=== PATIENT | female | born 1945 | race Caucasian/White ===

== ENCOUNTER 2020-01-15 08:25 | Outpatient (CLI) | payer MEDICARE, SELFPAY ==
--- NOTE | ~2020-01-15 | MM_ITS ---
EXAMINATION: MM screening [facility] BI w jose HISTORY: Screening mammogram TECHNIQUE: Craniocaudal and mediolateral oblique 3-D tomosynthesis images were obtained and synthetic 2-D images were generated. CAD analysis was submitted and interpreted. COMPARISON: 01/13/2019, 12/15/2017, 12/03/2016 BREAST PARENCHYMAL COMPOSITION: There are scattered areas of fibroglandular density. FINDINGS: A stable asymmetry is present in the posterior third of the outer right breast on the crani ocaudal view. There is no evidence of suspicious mass, calcification, or architectural distortion to suggest malignancy in either breast. There has been no suspicious interval change. IMPRESSION: 1. No mammographic evidence of malignancy. 2. Recommend routine screening mammography in one year. BI-RADS Category 2: Benign finding(s). Reviewed, dictated and finalized at location A.
== END 2020-01-15 08:26 | disposition home or self-care (01) ==
LOC: ANHIMG 08:34
PROVIDERS: PCP Family Medicine; Visit Provider Family Medicine
DX: Z12.31 Encounter for screening mammogram for malignant neoplasm of breast (principal)
CPT/HCPCS: 77063; 77067

== ENCOUNTER 2020-05-03 09:35 | Emergency (ER) | payer MEDICARE, SELFPAY ==
--- NOTE | ~2020-05-03 | CT_ITS ---
EXAMINATION: CT facial & cervical spine wo DATE: 05/03/2020 10:53 INDICATION: Head injury. TECHNIQUE: Computed tomography (CT) of the maxillofacial region and cervical spine was performed with out intravenous contrast. Automated exposure control and iterative reconstruction technique were empl oyed. The dose-length product was 165.89 mGy-cm. COMPARISON: None FINDINGS: MAXILLOFACIAL CT: There are likely changes of ocular lens replacement surgeries. There is mild mucosal thickening in th e maxillary sinuses. There is rightward deviation the nasal septum. No fracture. CERVICAL SPINE CT: There is 2 mm anterolisthesis of C3 on C4. Vertebral body heights are normal. There is mildly decreas ed disc height at C4-C5 and severely decreased disc height at C5-C6 and C6-C7. The following disc lev els are specifically discussed: C2-C3: There is no uncovertebral joint osteoarthritis. There is moderate right and mild left facet colby int osteoarthritis. There is no neural foraminal stenosis. There is no central canal stenosis. C3-C4: There is moderate bilateral uncovertebral joint osteoarthritis. There is severe bilateral face t joint osteoarthritis. There is moderate bilateral neural foraminal stenosis. There is mild central canal stenosis. C4-C5: There is severe bilateral uncovertebral joint osteoarthritis. There is severe bilateral facet joint osteoarthritis. There is mild bilateral neural foraminal stenosis. There is mild central canal stenosis. C5-C6: There is severe bilateral uncovertebral joint osteoarthritis. There is severe right and modera te left facet joint osteoarthritis. There is mild bilateral neural foraminal stenosis. There is mild central canal stenosis. C6-C7: There is severe bilateral uncovertebral joint osteoarthritis. There is mild bilateral facet colby int osteoarthritis. There is mild bilateral neural foraminal stenosis. There is mild central canal st enosis. C7-T1: There is no uncovertebral joint osteoarthritis. There is mild bilateral facet joint osteoarthr itis. There is no neural foraminal stenosis. There is no central canal stenosis. IMPRESSION: 1. No fracture. 2. Severe cervical spondylosis. Reviewed, dictated and finalized at location B.
--- NOTE | ~2020-05-03 | XR_ITS ---
EXAMINATION: XR knee RT min 4V DATE: 05/03/2020 10:40 INDICATION: Right knee injury. TECHNIQUE: 4 views of right knee were obtained. COMPARISON: Right knee radiographs 04/17/2016 FINDINGS: Bone alignment is normal. No fracture. There is mild osteoarthritis of medial and lateral c ompartments and severe osteoarthritis of patellofemoral compartment. There is chondrocalcinosis of th e menisci. There is a 13 mm loose body in the knee joint posteriorly. No knee joint effusion. IMPRESSION: 1. Severe right knee osteoarthrosis. 2. Right knee joint loose body. Reviewed, dictated and finalized at location B.
--- NOTE | ~2020-05-03 | CT_ITS ---
EXAMINATION: CT brain wo con DATE: 05/03/2020 10:53 INDICATION: Head injury. TECHNIQUE: Computed tomography (CT) of the head was performed without intravenous contrast. The mA wa s adjusted according to patient size. Iterative reconstruction technique was employed. The dose-lengt h product was 605.33 mGy-cm. COMPARISON: Head CT 03/27/2019 FINDINGS: There are scattered areas of low attenuation in the cerebral white matter. There is no intr acranial hemorrhage, acute infarction, or abnormal intracranial mass lesion. The ventricles are trish l in size. There are likely changes of ocular lens replacement surgeries. The paranasal sinuses are c lear. The mastoid air cells are normal. IMPRESSION: 1. Stable moderate nonspecific cerebral white matter disease, which likely represents chronic small v essel ischemic disease. Reviewed, dictated and finalized at location B. IMPRESSION: 1. Stable moderate nonspecific cerebral white matter disease, which likely repr esents chronic small vessel ischemic disease.
--- NOTE | ~2020-05-03 | XR_ITS ---
EXAMINATION: XR chest 1V DATE: 05/03/2020 10:40 INDICATION: Fall. TECHNIQUE: A single frontal view of the chest was obtained. COMPARISON: Chest 2 views 05/31/2017 FINDINGS: There is mild atelectasis in left lower lung zone. No pleural effusion or pneumothorax. The heart size is normal. There is a suture anchor in right humeral head. IMPRESSION: 1. Mild atelectasis in left lower lung zone. Reviewed, dictated and finalized at location B.
[2020-05-03 09:48] VITALS: BP 156/71; PULSE 87; RESP 20; TEMP 37; O2SAT 100
--- NOTE | 2020-05-03 11:23 | ED.FALL ---
HPI - Fall General Chief Complaint: Fall Stated Complaint: facial injury after fall Time Seen by Provider: 05/03/20 09:40 Source: RN notes reviewed History of Present Illness HPI Narrative: Patient presents emergency department from home for fall. Patient with history of dementia and history is limited. Patient states she was running and tripped and fell striking her face. Patient has swelling and ecchymosis around the nasal bridge as well as wounds over the lip patient also notes some contusion to the bilateral knees. Patient denies any loss of consciousness per family the patient is not on any blood thinners. Patient denies any chest pain shortness of breath abdominal pain nausea vomiting or any other symptoms. Patient and family unsure of last tetanus shot Related Data Allergies Allergy/AdvReac Type Severity Reaction Status Date / Time Sulfa (Sulfonamide Allergy Severe RASH AND Verified 05/03/20 09:56 Antibiotics) SORE JOINTS AND MUSCLES cephalexin Allergy Unknown Nausea Verified 05/03/20 09:56 Penicillins Allergy Unknown allergic Verified 05/03/20 09:56 sulfamethizole Allergy Unknown allergic Verified 05/03/20 09:56 Review of Systems Review of Systems: Narrative: Gen.: Denies fevers or chills Eyes: Denies eye pain or visual change ENT: Denies congestion Respiratory: Denies shortness of breath or cough CV: Denies chest pain or palpitations GI: Denies abdominal pain nausea, emesis or diarrhea Musculoskeletal: See HPI Neuro: Denies numbness, tingling, weakness or focal weakness Skin: See HPI Except as documented, all other systems reviewed and negative PMFSH Past Medical History Medical History (Updated 05/03/20 @ 11:30 by Gurwinder Bustamante DO) Hyperlipidemia, unspecified Social History Social History Smoking status: Never smoker Alcohol intake: never Gender identity (if verbalized by the patient): Female Exam Narrative: Exam Narrative: APPEARANCE: No acute distress, nontoxic, resting in bed EYES: EOMI HEENT: Normocephalic, nares patent swelling and ecchymosis over the nasal bridge, oral mucosa moist, no erythema or exudate posterior pharynx, small puncture wound over inner anterior lip with no active bleeding, the superior anterior lip has an area of abrasion with no deep laceration no through and through laceration seen RESPIRATORY: No respiratory distress Clear to auscultation bilaterally with no rhonchi wheezing or rales. CARDIOVASCULAR: Regular rate and rhythm without murmurs rubs or gallops. ABDOMINAL: Soft, nontender, nondistended, no rebound or guarding MUSCULOSKELETAl: Moves all extremities. No clubbing, cyanosis or edema. Small area of ecchymosis over left anterior knee no tenderness palpation full range of motion of the knee without pain, right knee with area of swelling and ecchymosis full flexion-extension without pain, no tenderness of the medial or lateral right knee, no tenderness of the bilateral hips or ankles, bile dorsalis pedis pulse 2+ neurovascular intact NEURO: Awake and alert x 2. Following commands, speech normal, no focal deficits SKIN:: Warm, dry. See HEENT PSYCHIATRIC: Normal affect/mood, Course Course Emergency Course: Discussed with patient results of workup and diagnosis. Discussed need for follow-up with primary care, proper use of medication, and reasons to return to the emergency department. Patient understands and agrees to current treatment plan Vital Signs Vital signs: Vital Signs Temperature 98.6 F 05/03/20 09:48 Pulse Rate 87 05/03/20 09:48 Respiratory Rate 05/03/20 09:48 Blood Pressure 156/71 H 05/03/20 09:48 Pulse Oximetry 100 05/03/20 09:48 Temperature 98.6 F 05/03/20 09:48 Pulse Rate 87 05/03/20 09:48 Respiratory Rate 05/03/20 09:48 Blood Pressure 156/71 H 05/03/20 09:48 Pulse Oximetry 100 05/03/20 09:48 MDM - Fall Imaging Data Radiologist's impres
[2020-05-03] MEDS: TETANUS,DIPHTHERIA,AC PERTUSSIS ADULT (0.5 ML) BOOSTRIX IM (11:28)
[2020-05-03 11:40] VITALS: BP 150/70; PULSE 82; RESP 20; O2SAT 99
== END 2020-05-03 11:55 | disposition home or self-care (01) ==
PROVIDERS: Emergency Provider Emergency Medicine; PCP Family Medicine
DX: S00.33XA Contusion of nose, initial encounter (principal); S80.01XA Contusion of right knee, initial encounter; S00.511A Abrasion of lip, initial encounter; F03.90 Unspecified dementia, unspecified severity, without behavioral disturbance, psychotic disturbance, mood disturbance, and anxiety; Z23 Encounter for immunization; E78.5 Hyperlipidemia, unspecified; M17.11 Unilateral primary osteoarthritis, right knee; R91.8 Other nonspecific abnormal finding of lung field; M47.812 Spondylosis without myelopathy or radiculopathy, cervical region; R90.82 White matter disease, unspecified; W01.0XXA Fall on same level from slipping, tripping and stumbling without subsequent striking against object, initial encounter; Y93.02 Activity, running
CPT/HCPCS: 70450; 70486; 71045; 72125; 73564; 90471; 90715; 99284

== ENCOUNTER 2020-07-15 17:07 | Emergency (ER) | payer MEDICARE, SELFPAY ==
[2020-07-15 17:15] VITALS: BP 135/60; PULSE 92; RESP 16; TEMP 37; O2SAT 100
--- NOTE | 2020-07-15 17:38 | ED.EAR ---
HPI - Ear Problem General Chief complaint: Ear Stated complaint: hearing loss Source: patient Mode of arrival: ambulatory Limitations: no limitations History of Present Illness HPI Narrative: Patient is a 75-year-old female with a history of dementia. Patient's reports that she has been complaining about being unable to hear all day. reports patient has been digging at ears intermittently. Reports history of cerumen impactions in the past. Patient does not appear to be in pain at this time, patient is confused and unable to answer questions. 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 EYES: Denies visual changes, redness, or discharge. ENT: Denies rhinorrhea, congestion, sore throat, reports bilateral otalgia CARDIOVASCULAR: Denies chest pain, palpitations, or edema. RESPIRATORY: Denies cough or dyspnea. GASTROINTESTINAL: Denies abdominal pain, nausea, vomiting, or diarrhea. GENITOURINARY: Denies dysuria or hematuria. SKIN: Denies rash or itching. MUSCULOSKELETAL: Denies back pain, joint pain, or myalgia. NEUROLOGIC: Denies headache, numbness, dizziness, or weakness. PSYCHIATRIC: Denies anxiety or depression. PMFSH Past Medical History Medical History Hyperlipidemia, unspecified Family History Family History Mother Family history of cardiovascular disease Diabetes mellitus Father Carcinoma of colon Social History Social History Smoking status: Never smoker Alcohol intake: never Gender identity (if verbalized by the patient): Female Exam Narrative: Exam Narrative: GENERAL: Well-appearing, well-nourished, and in no acute distress. HEAD: Normocephalic, atraumatic. EYES: No redness or drainage. ENT: Mucous membranes pink and moist. Cerumen impaction in bilateral ears. CHEST: No respiratory distress. EXTREMITIES: Normal range of motion. No edema. SKIN: Warm, dry, no rash. NEURO: No focal deficits. Alert and oriented x3. Gait steady. PSYCH: Normal affect. No signs of depression or anxiety. Course Vital Signs Vital signs: Vital Signs Temperature 37.0 C 07/15/20 17:15 Pulse Rate 92 07/15/20 17:15 Respiratory Rate 16 07/15/20 17:15 Blood Pressure 135/60 07/15/20 17:15 Pulse Oximetry 100 07/15/20 17:15 Temperature 37.0 C 07/15/20 17:15 Pulse Rate 92 07/15/20 17:15 Respiratory Rate 16 07/15/20 17:15 Blood Pressure 135/60 07/15/20 17:15 Pulse Oximetry 100 07/15/20 17:15 Reviewed. Patient has been instructed to follow-up with her PCP regarding her blood pressure. Procedures Ear Wax Removal Both Ears: Ear Wax Removal Date: 07/15/20 Ear Wax Removal Time: 17:46 Cerumenolytic Used: other Results: Re-examined: cerumen removed completely TM Examination: TM(s) intact, normal appearance Ear Canal Exam: atraumatic Patient Tolerated Procedure: well Complications: no problems Technique: ear canal irrigated and ear canal curetted Medical Decision Making MDM Narrative Medical decision making narrative: Patient had bilateral cerumen impaction, ears flushed and curetted to remove large amount of earwax bilaterally. Patient has a history of dementia and unable to verify if hearing is better at this time. Patient is stable for discharge to home with
== END 2020-07-15 17:51 | disposition home or self-care (01) ==
PROVIDERS: Emergency Provider Nurse Practitioner; PCP Family Medicine
DX: H61.23 Impacted cerumen, bilateral (principal); E78.5 Hyperlipidemia, unspecified
CPT/HCPCS: 69210; 99212; G0463

== ENCOUNTER 2021-10-07 19:36 | Emergency (ER) | payer MEDICARE, SELFPAY ==
[2021-10-07] VITALS (23 sets, daily range): BP systolic 94–129; BP diastolic 59–76; PULSE 60–79; RESP 9–20; TEMP 36.7; O2SAT 96–100
--- NOTE | ~2021-10-07 | CT_ITS ---
EXAMINATION: CT facial & cervical spine wo EXAM DATE: 10/07/2021 22:40 INDICATION: Fall, head injury. Facial injury. TECHNIQUE: Spiral CT of the facial bones was acquired in the axial plane. Coronal reformatted images were also reviewed. Spiral CT of the cervical spine was performed without contrast. Axial images we re reviewed. Coronal and sagittal reformatted images were also reviewed. The dose-length product (DL P) for this examination was 231.04 mGy-cm. The exposure was tailored according to patient size, and iterative reconstruction (ASIR) was used as additional dose reduction technique. There is no prior s tudy for comparison. FINDINGS: FACIAL CT: There are no displaced acute nasal bone fractures. The mandible, sinuses and orbits are i ntact. The orbits, globes and extraocular muscles are unremarkable. Bilateral cataract surgery. The visualized sinuses and mastoid air cells are well aerated. There is right frontal scalp contusion and laceration. There is swelling over the right maxilla, cheek. CERVICAL CT: Patient's head is turned to the left. There is no evidence of acute cervical fracture. The odontoid process is intact. Pre-dens space is normal. Prevertebral soft tissue is normal. Ther e are no soft tissue abnormalities identified. There is no disc space widening or traumatic vertebra l body subluxation suspected. Moderate to severe cervical spondylosis. A detailed level by level ev aluation of spondylosis can be added as addendum if requested. IMPRESSION: 1. No acute facial or cervical fracture. 2. Right frontal scalp contusion, laceration. Right cheek swelling. 3. Cervical spondylosis. Reviewed, dictated and finalized at location G. K OFF WORKER
--- NOTE | ~2021-10-07 | CT_ITS ---
EXAMINATION: CT brain wo con EXAM DATE: 10/07/2021 22:40 INDICATION: Fall, head injury, right eyebrow laceration. Left side hematoma. Right cheek bruising. TECHNIQUE: Spiral CT of the head was performed without contrast. Axial, coronal and sagittal images were reviewed. The dose-length product (DLP) for this examination was 605.33 mGy-cm. The exposure w as tailored according to patient size, and iterative reconstruction (ASIR) was used as additional dos e reduction technique. Comparison is made to prior examination from 05/03/2020. FINDINGS: There is no acute intraparenchymal hemorrhage. No evidence of intraparenchymal brain mass lesion. No evidence of acute infarction. Please note that initial head CT has limited sensitivity f or small or acute infarctions. There is moderate periventricular and subcortical hypodensity, nonspec ific but probably related to small vessel ischemic disease. There is moderate prominence of the sul ci and ventricles related to cerebral atrophy. There is intracranial carotid arteriosclerosis. The re are no extra-axial collections. There is no mass effect or midline shift. Patient has had bilate ral ocular lens surgery. Right frontal scalp contusion, laceration. The visualized sinuses and masto id air cells are well aerated. IMPRESSION: 1. No acute intracranial findings. 2. Chronic age related findings. 3. Right frontal scalp contusion, laceration. Reviewed, dictated and finalized at location G. MANAGER
--- NOTE | 2021-10-07 23:01 | ED.FALL ---
HPI - Fall General Chief Complaint: Fall Stated Complaint: fall with head injury Time Seen by Provider: 10/07/21 20:05 Source: family and EMS Mode of arrival: EMS Limitations: dementia History of Present Illness HPI Narrative: 76-year-old female Due to severe dementia patient resides at a SNF where she is a somewhat frequent nils This afternoon she was found on the floor next to her bed Unclear how she got there but at the time she was reported to have told staff that she rolled out of the bed onto the floor, however now she does not remember anything about the incident She has a small wound to the forehead some bruising to the face and some superficial skin tears mostly on her right arm Related Data Home Medications Medication Instructions Recorded Confirmed buspirone 5 mg tablet 5 mg PO BID 09/03/21 09/03/21 donepezil 5 mg tablet 5 mg PO QHS 09/03/21 09/03/21 sertraline 100 mg tablet 200 mg PO DAILY tablet 09/03/21 09/03/21 Allergies Allergy/AdvReac Type Severity Reaction Status Date / Time Sulfa (Sulfonamide Allergy Severe RASH AND Verified 09/03/21 12:24 Antibiotics) SORE JOINTS AND MUSCLES cephalexin Allergy Unknown Nausea Verified 09/03/21 12:24 Penicillins Allergy Unknown allergic Verified 09/03/21 12:24 sulfamethizole Allergy Unknown allergic Verified 09/03/21 12:24 Review of Systems Review of Systems: ROS unobtainable: Yes unobtainable due to mental status Constitutional: Constitutional: Reports weakness Cardiovascular: Cardiovascular: Denies chest pain Gastrointestinal: Gastrointestinal: Denies diarrhea and Denies vomiting [facility] Past Medical History Medical History Hyperlipidemia, unspecified Family History Family History Mother Family history of cardiovascular disease Diabetes mellitus Father Carcinoma of colon Social History Social History Alcohol intake: never Gender identity (if verbalized by the patient): Female Exam Const: General: cooperative, no acute distress, alert and confusion Other: Frail, elderly HENMT: Head: normocephalic, atraumatic, contusion, hematoma and laceration Ears: external ears normal General nose exam: no epistaxis Other: There is an old bruise on the left cheek and there is a fresh contusion on the right cheek there is a small roughly 3 mm laceration to the right forehead Eyes: Conjunctivae: conjunctivae normal EOM: EOMs intact bilaterally Neck: Neck: supple and no JVD Other: She was placed in a cervical collar but it is fitted underneath her nose and not doing anything so I just took it off, her neck is nontender Chest: Other: No chest wall tenderness with palpation Resp: Effort & Inspection: normal respiratory effort and not labored Auscultation: other (BS =) Cardio: Rate: regular rate Rhythm: regular rhythm Heart sounds: no murmurs GI: GI Palp: Yes Soft to palpation and No Tenderness to palpation present (GI) Back/Spine/Pelvis: Other: No back tenderness Skin: General skin exam: no rashes or lesions noted Other: She has a superficial skin tear on the right hand Neuro: General: moves all extremities Speech: normal speech Extrem: General: no pedal edema Psych: Affect: normal affect Course Course Emergency Course: Scans negative wounds clean and dressed, Steri-Strip applied to forehead by nursing Vital Signs Vital signs: Vital Signs Temperature 36.7 C 10/07/21 19:39 Pulse Rate 73 10/07/21 19:39 Respiratory Rate 17 10/07/21 19:39 Blood Pressure 121/61 10/07/21 19:39 Pulse Oximetry 100 10/07/21 19:39 Temperature 36.7 C 10/07/21 19:39 Pulse Rate 73 10/07/21 19:39 Respiratory Rate 17 10/07/21 19:39 Blood Pressure 121/61 10/07/21 19:39 Pulse Oximetry 100 10/07/21 19:39 MDM - Fall Medical Records Attestation: I r
[2021-10-08] VITALS: PULSE 62; RESP 14
[2021-10-08 00:04] VITALS: BP 109/86; PULSE 64; RESP 15
--- NOTE | 2021-10-08 00:14 | PC.NURSE ---
wounds dressed by Heaven MONTANO as ordered by EDP
== END 2021-10-08 00:29 ==
PROVIDERS: Emergency Provider Emergency Medicine; PCP Family Medicine
DX: S01.81XA Laceration without foreign body of other part of head, initial encounter (principal); S00.83XA Contusion of other part of head, initial encounter; E78.5 Hyperlipidemia, unspecified; F03.90 Unspecified dementia, unspecified severity, without behavioral disturbance, psychotic disturbance, mood disturbance, and anxiety; W06.XXXA Fall from bed, initial encounter
CPT/HCPCS: 70450; 70486; 72125; 99284

== ENCOUNTER 2021-11-01 09:19 | Emergency (ER) | payer MEDICARE, SELFPAY ==
[2021-11-01 09:21] VITALS: BP 122/87; PULSE 79; RESP 20; TEMP 36.8
--- NOTE | 2021-11-01 09:33 | ED.ABDPAIN ---
HPI - Abdominal Pain General Chief Complaint: Abdominal Pain Stated Complaint: abd pain Time Seen by Provider: 11/01/21 09:21 Source: patient and EMS Mode of arrival: EMS Limitations: dementia History of Present Illness HPI narrative: 76-year-old female presents to the ER via EMS with lower abdominal pain that started approximately an hour before arriving. Caregiver denies any diarrhea, nausea, vomiting, or fevers. Patient has a history of dementia but started complaining of lower abdominal pain. No other complaints MD elicited complaint: abdominal pain Onset (ago): hour(s) (One) Related Data Allergies Allergy/AdvReac Type Severity Reaction Status Date / Time Sulfa (Sulfonamide Allergy Severe RASH AND Verified 10/20/21 11:08 Antibiotics) SORE JOINTS AND MUSCLES cephalexin Allergy Unknown Nausea Verified 10/20/21 11:08 Penicillins Allergy Unknown allergic Verified 10/20/21 11:08 sulfamethizole Allergy Unknown allergic Verified 10/20/21 11:08 Review of Systems Review of Systems: All systems reviewed & are unremarkable except as noted in HPI and below Constitutional: Constitutional: Reports no additional constitutional complaints Eyes: Eyes: Reports no additional eye complaints ENT: Reports system reviewed and no additional complaints, except as documented Cardiovascular: Cardiovascular: Reports no additional cardiovascular complaints Respiratory: Respiratory: Reports no additional respiratory complaints Gastrointestinal: Gastrointestinal: Reports abdominal pain (Lower) Genitourinary: Genitourinary: Reports no additional female genitourinary complaints Musculoskeletal: Musculoskeletal: Reports no additional musculoskeletal complaints Integumentary/Breasts: Skin/Breast: Reports system reviewed and no additional complaints, except as docu Neurologic: Reports system reviewed and no additional complaints, except as documented Psychiatric: Psychiatric: Reports no additional psychiatric complaints Endocrine: Endocrine: Reports no additional endocrine complaints Hematologic/Lymphatic: Hematologic/Lymphatic: Reports no additional hematologic/lymphatic complaints Allergic/Immunologic: Allergic/Immunologic: Reports no additional allergic/immunologic complaints PMF Past Medical History Medical History (Updated 11/01/21 @ 11:11 by Steve Payton APRN) Hyperlipidemia, unspecified Surgical History Surgical History (Updated 10/20/21 @ 11:25 by Sarahi Greenberg PA-C) History of left knee replacement History of repair of rotator cuff Family History Family History Mother Family history of cardiovascular disease Diabetes mellitus Father Carcinoma of colon Social History Social History (Updated 10/20/21 @ 11:11 by Harriet Medrano [facility]) Second hand tobacco smoke exposure: No Alcohol intake: never Substance use: former Other substance usage details: Years ago. Gender identity (if verbalized by the patient): Female Exam Narrative: General appearance: Well-developed, well-nourished Skin: Normal color Head: Normocephalic, nontraumatic Eyes: Clear conjunctiva ENT: Oropharynx normal, ears normal, nose normal Neck: Supple, nontender Chest and respiratory: Airway patent, no respiratory distress, no accessory muscle use Heart: Regular rate/rhythm Abdomen: Soft, tenderness to suprapubic, no organomegaly, quiet bowel sounds Vascular: Normal peripheral pulses, normal capillary refill. Musculoskeletal: Normal range of motion, nontender back Neurologic: Alert and oriented ?3, ENVIRONMENTAL ADVISER is normal as tested, no gross motor deficit Course Course Emergency Co
[2021-11-01 09:37] LABS: Basophils Percent Auto 0.5 % (0.2-1.2); Eosinophils Percent Auto 0.3 % (0-4.4); Hematocrit 42.2 % (37.0-47.0); Hemoglobin 13.7 g/dL (12.0-15.0); Immature Granulocyte Absolute 0.02 K/mm3 (0.00-0.031); Immature Granulocyte Percent A 0.3 % (0-0.5); Lymphocytes Absolute Auto 1.05 K/mm3 (0.9-3.2); Lymphocytes Percent Auto 17.4 % (18.3-44.2); Mean Corpuscular HGB Conc 32.5 g/dl (32-36); Mean Corpuscular Hemoglobin 30.3 pg (26-34); Mean Corpuscular Volume 93.4 fl (80-100); Mean Platelet Volume 9.4 fl (7.4-10.4); Monocytes Absolute Auto 0.5 K/mm3 (0.1-0.6); Monocytes Percent Auto 8.1 % (2.6-8.5); Neutrophils Absolute Auto 4.4 K/mm3 (1.3-6.7); Neutrophils Percent Auto 73.4 % (45.5-73.1); Platelet Count Result 237 k/mm3 (150-375); Red Blood Count 4.52 M/mm3 (4.2-5.4); Red Cell Distribution Width 12.4 % (11.5-14.5)
[2021-11-01 09:52] LABS: Alanine Aminotransferase 16 U/L (4-35); Alkaline Phosphatase 88 U/L (38-126); Anion Gap 7 mmol/L (8-16); Aspartate Amino Transferase 26 U/L (14-36); Bilirubin,Total 0.5 mg/dL (0.2-1.3); Blood Urea Nitrogen 10 mg/dL (7-17); Calcium 8.8 mg/dL (8.4-10.2); Carbon Dioxide 29 mmol/L (22-30); Chloride 106 mmol/L (98-107); Estimated CRCL calculation 49 ml/min; Estimated Glomerular Filt Rate > 60; Glucose 99 mg/dL (65-110); Lipase 153 U/L (23-300); Potassium 3.1 mmol/L (3.4-5.0); Sodium 142 mmol/L (137-145)
--- NOTE | 2021-11-01 10:05 | PC.NURSE ---
Pt pulled out IV, attempting to get out of bed. Redirected
[2021-11-01 11:02] LABS: Add Urine Microscopic? YES; Appearance Urine Clear (Clear); Bilirubin Urine Negative (Negative); Blood Urine Negative (Negative); Color Urine Yellow (Yellow); Glucose Urine UA Negative (Negative); Ketones Urine 1+ mg/dL (Negative); Leukocyte Esterase Ur Trace LEU/UL (Negative); Nitrate Urine Positive (Negative); Protein Urine Negative (Negative); Specific Grav Ur 1.018 (1.001-1.035)
[2021-11-01] MEDS: NITROFURANTOIN MONOHYD MACROCR 100 MG CAP PO (11:20)
[2021-11-01 12:09] VITALS: BP 110/75; PULSE 91; RESP 16; O2SAT 99
== END 2021-11-01 11:00 | disposition home or self-care (01) ==
PROVIDERS: Emergency Medicine; Emergency Provider Nurse Practitioner Family; PCP Family Medicine
DX: N39.0 Urinary tract infection, site not specified (principal); F03.90 Unspecified dementia, unspecified severity, without behavioral disturbance, psychotic disturbance, mood disturbance, and anxiety; E78.5 Hyperlipidemia, unspecified; Z96.652 Presence of left artificial knee joint
CPT/HCPCS: 36415; 51701; 80053; 81001; 83690; 85025; 99283; A9270

== ENCOUNTER 2021-12-23 09:33 | Emergency (ER) | payer MEDICARE, SELFPAY ==
--- NOTE | ~2021-12-23 | CT_ITS ---
EXAMINATION: CT brain wo con DATE: 12/23/2021 10:41 INDICATION: Head injury. TECHNIQUE: Computed tomography (CT) of the head was performed without intravenous contrast. The mA wa s adjusted according to patient size. Iterative reconstruction technique was employed. The dose-lengt h product was 605.33 mGy-cm. COMPARISON: Head CT 10/07/2021, brain MRI 07/04/2019 FINDINGS: There are scattered areas of low attenuation in the cerebral white matter, worst in the lef t temporal parietal occipital region. There is no intracranial hemorrhage, acute infarction, or abnor mal intracranial mass lesion. The ventricles are normal in size. There are likely changes of ocular l ens replacement surgeries. There is mild mucosal thickening in the ethmoid sinuses. The mastoid air c ells are normal. IMPRESSION: 1. Stable moderate nonspecific cerebral white matter disease, which likely represents chronic small v essel ischemic disease. Reviewed, dictated and finalized at location B. IMPRESSION: 1. Stable moderate nonspecific cerebral white matter disease, which likely repr esents chronic small vessel ischemic disease.
--- NOTE | ~2021-12-23 | CT_ITS ---
EXAMINATION: CT abdomen pelvis w con DATE: 12/23/2021 10:41 INDICATION: Nausea, vomiting, and diarrhea. TECHNIQUE: Computed tomography (CT) of the abdomen and pelvis was performed with 100 mL Omnipaque 350 intravenous contrast. Automated exposure control and iterative reconstruction technique were employe d. The dose-length product was 257.67 mGy-cm. COMPARISON: None. FINDINGS: The visualized portions of the lung bases demonstrate mild atelectasis. No pleural effusion . The heart size is normal. No pericardial effusion. The liver, gallbladder, spleen, are normal. Ther e is a 2.4 cm cyst in the body of the pancreas. The adrenal glands and kidneys are normal. There is g as in the bladder lumen, likely from recent instrumentation. There is diverticulosis of the colon wit hout evidence of diverticulitis. The appendix is normal. There are no pathologically enlarged lymph n odes. There is no free intraperitoneal fluid. There is thoracolumbar dextroscoliosis and severe spond ylosis. IMPRESSION: 1. 2.4 cm cyst in the body of the pancreas. The differential diagnosis includes pseudocyst, intraduct al papillary mucinous neoplasm (IPMN), mucinous cystic neoplasm (MCN), serous cystadenoma, and neuroe ndocrine tumor. Abdomen MRI without and with contrast is recommended in 6 months. Reviewed, dictated and finalized at location B. IMPRESSION: 1. 2.4 cm cyst in the body of the pancreas. The differential diagnosis includes pseudocyst, intraductal papillary mucinous neoplasm (IPMN), mucinous cystic ne oplasm (MCN), serous cystadenoma, and neuroendocrine tumor. Abdomen MRI without and with contrast is recommended in 6 months.
[2021-12-23 09:36] VITALS: BP 134/70; PULSE 95; RESP 16; TEMP 36.5; O2SAT 99
[2021-12-23 10:03] LABS: Basophils Percent Auto 0.4 % (0.2-1.2); Eosinophils Absolute Auto 0.1 K/mm3 (0-0.3); Eosinophils Percent Auto 0.6 % (0-4.4); Hematocrit 40.7 % (37.0-47.0); Hemoglobin 13.2 g/dL (12.0-15.0); Immature Granulocyte Absolute 0.04 K/mm3 (0.00-0.031); Immature Granulocyte Percent A 0.4 % (0-0.5); Lymphocytes Absolute Auto 1.68 K/mm3 (0.9-3.2); Lymphocytes Percent Auto 17.3 % (18.3-44.2); Mean Corpuscular HGB Conc 32.4 g/dl (32-36); Mean Corpuscular Hemoglobin 30.5 pg (26-34); Mean Platelet Volume 10.2 fl (7.4-10.4); Monocytes Absolute Auto 0.7 K/mm3 (0.1-0.6); Monocytes Percent Auto 7.3 % (2.6-8.5); Neutrophils Absolute Auto 7.2 K/mm3 (1.3-6.7); Platelet Count Result 249 k/mm3 (150-375); Red Blood Count 4.33 M/mm3 (4.2-5.4); Red Cell Distribution Width 14.3 % (11.5-14.5); White Blood Count 9.7 K/mm3 (4.5-10.0)
--- NOTE | 2021-12-23 10:03 | ED.NAVMDI ---
HPI - Nausea/Vomiting/Diarrhea General Chief complaint: Nausea/Vomiting/Diarrhea Stated complaint: Diarrhea x 5 days Time Seen by Provider: 12/23/21 09:46 Source: family History of Present Illness HPI Narrative: Patient presents with decreased appetite weight loss and diarrhea over the past few days. Family was concerned because he appears to be getting worse so she came to the ER for evaluation. Reports she was recently diagnosed with UTI approximately 1 month ago. Appeared to recover. Family has been attempting protein shakes that she has not been eating but she continues to not want to eat. Family has not noted any fevers family has not noted the patient to be in any pain. Family did report she fell down yesterday but appeared to be acting like her usual self so they monitored her. Related Data Allergies Allergy/AdvReac Type Severity Reaction Status Date / Time Sulfa (Sulfonamide Allergy Severe RASH AND Verified 12/18/21 10:11 Antibiotics) SORE JOINTS AND MUSCLES cephalexin Allergy Unknown Nausea Verified 12/18/21 10:11 Penicillins Allergy Unknown allergic Verified 12/18/21 10:11 sulfamethizole Allergy Unknown allergic Verified 12/18/21 10:11 Review of Systems Review of Systems: ROS unobtainable: Yes unobtainable due to medical condition PMFSH Past Medical History Medical History Hyperlipidemia, unspecified Surgical History Surgical History History of left knee replacement History of repair of rotator cuff Family History Family History Mother Family history of cardiovascular disease Diabetes mellitus Father Carcinoma of colon Social History Social History Second hand tobacco smoke exposure: No Alcohol intake: never Substance use: former Other substance usage details: Years ago. Gender identity (if verbalized by the patient): Female Exam Narrative: GENERAL: Well-appearing, well-nourished, and in no acute distress. HEAD: Normocephalic, atraumatic. EYES: PERRLA and EOMI. ENT: Nares clear, no rhinorrhea or epistaxis. Mucous membranes moist. NECK: Supple. No masses. No JVD CHEST: Clear to auscultation. No respiratory distress. No wheezes rales or rhonchi HEART: Regular rate and rhythm. No murmur heard. Normal peripheral pulses. ABDOMEN: Soft, nontender, nondistended, normal active bowel sounds. EXTREMITIES: Normal range of motion. No edema. SKIN: Warm, dry, no rash. NEURO: No focal deficits. Alert PSYCH: Normal mood and affect. Course Reevaluation(s) Reevaluation #1: Patient is resting comfortably results and plan reviewed with patient and family. Family is comfortable with outpatient plan and feel like they can manage her symptoms at this point. Family was offered inpatient evaluation encourage return to the ER if you change your mind about ability to care for the patient at home. Date: 12/23/21 Time: 11:43 Vital Signs Vital signs: Vital Signs Temperature 36.5 C 12/23/21 09:36 Pulse Rate 95 12/23/21 09:36 Respiratory Rate 16 12/23/21 09:36 Blood Pressure 134/70 12/23/21 09:36 Pulse Oximetry 99 12/23/21 09:36 Temperature 36.5 C 12/23/21 09:36 Pulse Rate 95 12/23/21 12:00 Respiratory Rate 17 12/23/21 12:00 Blood Pressure 117/91 H 12/23/21 12:00 Pulse Oximetry 98 12/23/21 12:00 MDM - Nausea/Vomiting/Diarrhea MDM Narrative Medical decision making narrative: H&P as above, vss, pt looks clinically well, exam reassuring, labs with UA concerning for infection, img pancreatic cyst otherwise clinically unremarkable, additional labs/img considered, symptomatic relief available as needed, on reevaluation pt continues to looks clinically well. Diarrhea may be related to viral infection and he may have inoculated her tract and
[2021-12-23 10:04] LABS: Glucose Point of Care 123 mg/dl (65-105)
[2021-12-23] MEDS: ONDANSETRON INJ 4 MG/2 ML VIAL IV PUSH (10:06)
[2021-12-23] MEDS: SODIUM CHLORIDE 0.9% IV 1,000 ML 999 ML IV CONT (10:06)
[2021-12-23 10:14] LABS: Alanine Aminotransferase 20 U/L (4-35); Albumin Level 4.3 g/dL (3.5-5.1); Alkaline Phosphatase 80 U/L (38-126); Anion Gap 11 mmol/L (8-16); Aspartate Amino Transferase 31 U/L (14-36); Bilirubin,Total 0.4 mg/dL (0.2-1.3); Blood Urea Nitrogen 11 mg/dL (7-17); Calcium 8.8 mg/dL (8.4-10.2); Carbon Dioxide 23 mmol/L (22-30); Chloride 108 mmol/L (98-107); Estimated CRCL calculation 69 ml/min; Estimated Glomerular Filt Rate > 60; Glucose 130 mg/dL (65-110); Lipase 184 U/L (23-300); Potassium 3.1 mmol/L (3.4-5.0); Sodium 142 mmol/L (137-145)
[2021-12-23 10:31] LABS: Appearance Urine Clear (Clear); Bilirubin Urine Negative (Negative); Blood Urine Negative (Negative); Color Urine Yellow (Yellow); Glucose Urine UA Trace mg/dL (Negative); Ketones Urine Trace mg/dL (Negative); Leukocyte Esterase Ur Negative LEU/UL (Negative); Nitrate Urine Positive (Negative); Protein Urine Negative (Negative); Urobilinogen Urine 0.2 mg/dL (<2.0); pH Urine 6.5 (5.0-9.0)
[2021-12-23 10:38] LABS: Bacteria Urine 1+ /hpf; Mucus Urine Few /lpf; Squamous Epithelial Cell Urine Occasional /hpf (Few); WBC Urine 0-3 /hpf
[2021-12-23 10:39] LABS: Add Urine Microscopic? YES
[2021-12-23 12:00] VITALS: BP 117/91; PULSE 95; RESP 17; O2SAT 98
== END 2021-12-23 12:02 | disposition home or self-care (01) ==
PROVIDERS: Emergency Provider Emergency Medicine; PCP Family Medicine
DX: K86.2 Cyst of pancreas (principal); R19.7 Diarrhea, unspecified; N39.0 Urinary tract infection, site not specified; E78.5 Hyperlipidemia, unspecified; Z96.652 Presence of left artificial knee joint; R90.82 White matter disease, unspecified
CPT/HCPCS: 36415; 70450; 74177; 80053; 81001; 82948; 83690; 85025; 87077; 87086; 87088; 87186; 96361; 96365; 96375; 99284; J1956; J2405; J7030; Q9967

== ENCOUNTER 2022-03-23 14:06 | Outpatient (CLI) | payer MEDICARE, SELFPAY ==
[2022-03-23 19:06] LABS: Hematocrit 43.9 % (37.0-47.0); Hemoglobin 13.6 g/dL (12.0-15.0); Mean Corpuscular Hemoglobin 28.6 pg (26-34); Mean Corpuscular Volume 92.4 fl (80-100); Mean Platelet Volume 10.4 fl (7.4-10.4); Platelet Count Result 249 k/mm3 (150-375); Red Blood Count 4.75 M/mm3 (4.2-5.4)
[2022-03-23 19:17] LABS: Alanine Aminotransferase 17 U/L (6-35); Albumin Level 3.7 g/dL (3.5-5.1); Alkaline Phosphatase 77 U/L (38-126); Anion Gap 6 mmol/L (8-16); Aspartate Amino Transferase 28 U/L (14-36); Bilirubin,Total 0.3 mg/dL (0.2-1.3); Blood Urea Nitrogen 14 mg/dL (7-17); Calcium 8.6 mg/dL (8.4-10.2); Carbon Dioxide 29 mmol/L (22-30); Chloride 105 mmol/L (98-107); Estimated Glomerular Filt Rate > 60; Glucose 118 mg/dL (65-110); Potassium 3.5 mmol/L (3.4-5.0); Sodium 140 mmol/L (137-145)
== END 2022-03-23 14:07 | disposition home or self-care (01) ==
LOC: ANHGOSHLAB 14:12
PROVIDERS: PCP Family Medicine; Visit Provider Family Medicine
DX: F03.90 Unspecified dementia, unspecified severity, without behavioral disturbance, psychotic disturbance, mood disturbance, and anxiety (principal); D64.9 Anemia, unspecified; R42 Dizziness and giddiness
CPT/HCPCS: 36415; 80053; 84443; 85027